=== PATIENT | female | born 1960 | race African-American/Black ===

== ENCOUNTER 2025-03-31 06:07 | Day surgery (SDC) | payer OTHER ==
[2025-03-31 06:21] VITALS: RESP 18
[2025-03-31] MEDS: Lactated Ringers 1,000 ML IV SCH (06:40)
[2025-03-31] MEDS ORDERED: Versed 2 MG/2 ML Injection ONE (07:01)
[2025-03-31] MEDS ORDERED: propofoL IV ONE (07:01)
[2025-03-31 07:51] VITALS: O2SAT 99
[2025-03-31 08:01] VITALS: BP 119/57; PULSE 80
[2025-03-31 08:07] VITALS: TEMP 97.1
--- NOTE | 2025-04-01 10:42 | OP ---
SURGERY DATE/TIME: 03/31/2025 [id number] PREOPERATIVE DIAGNOSIS: Screening colonoscopy. POSTOPERATIVE DIAGNOSES: 1) Normal colon. 2) External hemorrhoids. PROCEDURE: Colonoscopy. SURGEON: Jimmie Puri MD ANESTHESIA: MAC by Justin Gutierrez CRNA. ESTIMATED BLOOD LOSS: None. SPECIMENS: None. DESCRIPTION OF PROCEDURE AND FINDINGS: After informed written consent was obtained, the patient was taken to the endoscopy suite. She was placed in the left lateral decubitus position and anesthesia was titrated to desired level of consciousness. Digital rectal exam showed external hemorrhoids but normal sphincter tone and no internal lesions. The scope was inserted into the rectum, and sequentially the entire colonic mucosa was traversed. Level of the cecum was reached and verified with direct visualization of the ileocecal valve. Upon withdrawal, careful mucosal inspection revealed no gross abnormalities. Prep was noted to be good. Prior to withdrawal, retroflexion showed no internal lesions. The scope was removed. The patient was transferred to the recovery room in good condition.
== END 2025-03-31 08:09 | disposition home or self-care (01) ==
LOC: SDC 06:07
PROVIDERS: ATTEND Family Medicine
DX: Z12.11 Encounter for screening for malignant neoplasm of colon (principal); K64.4 Residual hemorrhoidal skin tags